=== PATIENT | male | born 1985 | race African-American/Black ===

== ENCOUNTER 2017-10-25 02:14 | Emergency (ER) | payer MEDICARE, MEDICAID ==
[~2017-10-25] VITALS: Ht 177.8 cm; Wt 61.2 kg
[~2017-10-25 02:14] MED LIST: ACETAMINOPHEN325 M1 ORAL; ALBUTEROL2.5 MG/3 M HHN; AMIKACIN S500 MG/2 M IJ; BISACODYL5 MG ORAL; CALCIUM + VITA1 EAC2 PO; CEFTRIAXON1 GM/50 ML IV; CEFTRIAXON2 GM/50 ML IV; CULTURELLE1 EACH ORAL; DETROL2 MG ORAL; DILAUDID 22 MG/1 ML SUBQ; DILAUDID2 MG ORAL; DOCUSATE SODIU100 MG ORAL; DUONEB 0.5-3(2.53 ML HHN; FEOSOL325 MG ORAL; FERROUS SULFAT325 MG ORAL; FLAGYL500 MG ORAL; HEPARIN SO5000 UNIT2 SUBQ; HYDROMORPHO2 MG/1 M5 IVP; KEFLEX500 MG ORAL; LOMOTIL TABLET1 EACH ORAL; MACROBID100 MG ORAL; METHADONE HCL10 MG ORAL; METRONIDAZOLE500 MG ORAL; MIRALAX17 GM ORAL; MULTIVITAMINS1 EA11 ORAL; NEURONTIN600 MG ORAL; NORCO 10/3251 EA ORAL; OXYBUTYNIN CHLOR5 M1 ORAL; PHENERGAN25 M1 ORAL; PROMETHAZINE HC25 MG RC; RANITIDINE HCL150 MG ORAL; SENNA8.6 M2 PO; SENNA8.6 M3 PO; UNOBMED; VANCOMYCIN1 GM/2502 IVPB; VANCOMYCIN250 MG/5 M ORAL; VITAMIN C WITH500 MG PO; ZINC SULFATE220 M1 ORAL
[2017-10-25 03:06] VITALS: BP 0/0
--- NOTE | 2017-10-25 03:06 | Emergency Room Report ---
History of Present Illness General Chief Complaint: Abdominal Pain Source: Patient, Medical Record Present Illness HPI Is a 32-year-old male with a history of present chronic pain. He presents with multiple complaints. He came in complaining abdominal pain. He's been here several times in the past for the same thing. Pain is diffuse in nature. No guarding or rebound. No nausea vomiting. No diarrhea. He also complaining of right leg swelling and pain. He claims but only for a week. He claimed that his wound was only been there for a week. No trauma. Pain is 10 out of 10. He is paraplegic and uses a wheelchair. Allergies: Coded Allergies: MORPHINE (Unverified Allergy, Mild, Rash, 09/06/13) COPIED FROM NURSING Patient History Past Medical History: see triage record, old chart reviewed Past Surgical History: other Pertinent Family History: none Social History: Denies: smoking Immunizations: other Reviewed Nursing Documentation: PMH: Agreed, PSxH: Agreed Nursing Documentation-PMH Hx Cardiac Problems: No Hx Cancer: No Hx Gastrointestinal Problems: Yes - ILEOSTOMY Hx Neurological Problems: Yes - Paraplegic since 2006 due to fall Hx Paralysis: Yes - 2006 fall/injury Hx Spinal Cord Injury: Yes - 2006 Review of Systems Eye: Denies: eye pain, blurred vision ENT: Denies: ear pain, nose congestion, throat swelling Respiratory: Denies: cough, shortness of breath Cardiovascular: Denies: chest pain, palpitations Gastrointestinal: Reports: abdominal pain, Denies: diarrhea, nausea, vomiting Musculoskeletal: Denies: back pain, joint pain Skin: Denies: rash Neurological: Denies: headache, numbness Endocrine: Denies: increased thirst, increased urine Hematologic/Lymphatic: Denies: easy bruising All Other Systems: negative except mentioned in HPI Physical Exam Vital Signs Date Time Temp Pulse Resp B/P (MAP) Pulse Ox O2 Delivery O2 Flow Rate FiO2 10/25/17 02:33 98.6 89 16 111/62 99 Room Air vitals normal Sp02 EP Interpretation: reviewed, normal General Appearance: well appearing, no apparent distress, alert Head: normocephalic, atraumatic Eyes: bilateral eye PERRL, bilateral eye EOMI ENT: hearing grossly normal, normal pharynx Neck: full range of motion, supple, no meningismus Respiratory: chest non-tender, lungs clear, normal breath sounds Cardiovascular #1: regular rate, rhythm, no murmur Gastrointestinal: normal bowel sounds, non tender, no mass, no organomegaly, no bruit, non-distended, other - Normal bowel sounds. Abdomen is soft. He has an ileostomy tube. Musculoskeletal: back normal, other - Right leg: He has old wound with scarring to the right thigh area. No drainage. Right leg show edema greater than left. 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 Neurologic: alert, oriented x3 Psychiatric: mood/affect normal Skin: warm/dry Medical Decision Making Diagnostic Impression: Primary Impression: Abdominal pain of unknown etiology Additional Impressions: Chronic pain Qualified Codes: G89.4 - Chronic pain syndrome Osteomyelitis, chronic, ankle or foot Qualified Codes: M86.679 - Other chronic osteomyelitis, unspecified ankle and foot ER Course Patient with chronic pain. Abdominal pain as chronic in nature and most likely secondary to constipation from narcotic. I see no evidence of obstruction. He looks comfortable. Lower extremity edema is probably chronic in nature. His wound are chronic in nature. The gangrene is dry. He tell me that his doctor is in [place]. He has been to her vomiting for his leg pain before. I suspect it is going to different hospital for pain medication. Because of the edema to lower extremity I order ultrasound to rule out DVT. Back she called the wire straightener. Because patient did not get his narcotic, he said he went to leave. He is competent to leave AGAINST MEDICAL ADVICE. Last Vital Signs Date Time Temp Pulse Resp B/P (MAP) Pulse Ox O2 Delivery O2 Flow Rate FiO2 10/25/17 02:33 98.6 89 16 111/62 99 Room Air Status: unchanged Disposition: AGAINST MEDICAL ADVICE Condition: Stable GABRIEL ECHOLS M.D. Oct 25, 2017 03:06
== END 2017-10-25 03:06 | disposition left against medical advice (07) ==
LOC: EMR 02:55
DX: R10.9 Unspecified abdominal pain (principal); G89.29 Other chronic pain; M86.672 Other chronic osteomyelitis, left ankle and foot; M86.671 Other chronic osteomyelitis, right ankle and foot; I96 Gangrene, not elsewhere classified; G82.20 Paraplegia, unspecified; Z88.5 Allergy status to narcotic agent
CPT/HCPCS: 99282

== ENCOUNTER 2018-03-14 13:29 | Inpatient (IN) | payer MEDICARE, MEDICAID ==
[~2018-03-14] VITALS: Ht 177.8 cm; Wt 73.0 kg
[2018-03-14 13:53] VITALS: BP 104/56
[2018-03-14] MEDS ORDERED: fentaNYL 100 mcg/2 mL IV ONE (14:15)
--- NOTE | 2018-03-14 14:35 | Emergency Room Report ---
History of Present Illness General Chief Complaint: Abdominal Pain Source: Patient, Medical Record Present Illness HPI Patient presents emergency department today complaining of abdominal pain. Patient states that he had a history of falls while he was incarcerated and he is a paraplegic. In addition he also has ileostomy. He states that he has been vomiting for the last couple of days so she was some diffuse abdominal pain. In addition he feels that his left hip might be getting infected that he has a chronic ulcer there. He denies any fever chest pain or shortness of breath. No other complaints are noted. Symptoms noted moderate to severe. Allergies: Coded Allergies: MORPHINE (Unverified Allergy, Mild, Rash, 09/06/13) COPIED FROM NURSING KETOROLAC (Verified Allergy, Unknown, 03/14/18) Patient History Past Medical History: other - ileostomy PSxH Narrative ileostomy Social History: Denies: smoking, alcohol use, drug use Reviewed Nursing Documentation: PMH: Agreed; PSxH: Agreed Nursing Documentation-PMH Past Medical History: No History, Except For Hx Cardiac Problems: No Hx Cancer: No Hx Gastrointestinal Problems: Yes - ILEOSTOMY Hx Neurological Problems: Yes - Paraplegic since 2006 due to fall Hx Paralysis: Yes - 2006 fall/injury Hx Spinal Cord Injury: Yes - 2006 Review of Systems All Other Systems: negative except mentioned in HPI Physical Exam Vital Signs Date Time Temp Pulse Resp B/P (MAP) Pulse Ox O2 Delivery O2 Flow Rate FiO2 03/14/18 13:43 98.0 100 18 87/50 98 Room Air 98.1 Sp02 EP Interpretation: reviewed, normal General Appearance: normal inspection, well appearing, alert, mild distress Head: atraumatic Eyes: bilateral eye normal inspection ENT: normal ENT inspection, hearing grossly normal, normal voice Neck: normal inspection, full range of motion, supple, no bony tend Respiratory: normal inspection, lungs clear, normal breath sounds, no respiratory distress, no retraction, no wheezing Cardiovascular #1: regular rate, rhythm, no edema Gastrointestinal: other - diffusely tender, ileostomy intact, brown liquid stool in pouch Genitourinary: no CVA tenderness Musculoskeletal: other - left buttock deep decubitus ulcer, red, serosanguineous discha Neurologic: normal inspection, alert, responsive, speech normal Psychiatric: depressed affect, anxious Skin: other - left decubitus ulcer hip Medical Decision Making Diagnostic Impression: Primary Impression: UTI (urinary tract infection) Additional Impressions: Abdominal pain Decubital ulcer ER Course Patient presents emergency department today with vomiting. Differential diagnoses include viral syndrome, gastroenteritis, severe infection, bowel obstruction just to name a few.Given the severity of the patient's presentation I felt this is a highly complex patient. This patient required extensive workup. Patient's laboratory workup shows evidence of severe UTI patient was given antibiotics Zosyn and vancomycin. Patient also evidence of significant hip decubitus ulcer CT scan of the abdomen and pelvis shows gas tracking up to this hip which could be consistent with septic joint. Case was discussed with Dr. Kate. Patient will be admitted to Dr. Kate for further treatment. Dr. Kate admitted patient before. Labs Test 03/14/18 15:25 03/14/18 15:45 White Blood Count 7.7 K/UL (4.8-10.8) Red Blood Count 2.76 M/UL (4.70-6.10) Hemoglobin 8.0 G/DL (14.2-18.0) Hematocrit 24.9 % (42.0-52.0) Mean Corpuscular Volume 90 FL (80-99) Mean Corpuscular Hemoglobin 29.0 PG (27.0-31.0) Mean Corpuscular Hemoglobin Concent 32.1 G/DL (32.0-36.0) Red Cell Distribution Width 17.1 % (11.6-14.8) Platelet Count 182 K/UL (150-450) Mean Platelet Volume 6.5 FL (6.5-10.1) Neutrophils (%) (Auto) 72.5 % (45.0-75.0) Lymphocytes (%) (Auto) 13.6 % (20.0-45.0) Monocytes (%) (Auto) 10.1 % (1.0-10.0) Eosinophils (%) (Auto) 3.3 % (0.0-3.0) Basophils (%) (Auto) 0.6 % (0.0-2.0) Prothrombin Time 11.4 SEC (9.30-11.50) Prothromb Time International Ratio 1.1 (0.9-1.1) Activated Partial Thromboplast Time 33 SEC (23-33) Sodium Level 137 MMOL/L (136-145) Potassium Level 3.4 MMOL/L (3.5-5.1) Chloride Level 104 MMOL/L (98-107) Carbon Dioxide Level 22 MMOL/L (21-32) Anion Gap 11 mmol/L (5-15) Blood Urea Nitrogen 5 mg/dL (7-18) Creatinine 0.2 MG/DL (0.55-1.30) Estimat Glomerular Filtration Rate > 60 mL/min (>60) Glucose Level 103 MG/DL (74-106) Calcium Level 8.9 MG/DL (8.5-10.1) Total Bilirubin 0.8 MG/DL (0.2-1.0) Aspartate Amino Transf (AST/SGOT) 13 U/L (15-37) Alanine Aminotransferase (ALT/SGPT) 15 U/L (12-78) Alkaline Phosphatase 81 U/L (46-116) Total Protein 7.6 G/DL (6.4-8.2) Albumin 2.6 G/DL (3.4-5.0) Globulin 5.0 g/dL Albumin/Globulin Ratio 0.5 (1.0-2.7) Lipase 61 U/L (73-393) Urine Color Yellow Urine Appearance Cloudy Urine pH 6 (4.5-8.0) Urine Specific [place] 1.010 (1.005-1.035) Urine Protein 2+ (NEGATIVE) Urine Glucose (UA) Negative (NEGATIVE) Urine Ketones Negative (NEGATIVE) Urine Occult Blood 4+ (NEGATIVE) Urine Nitrite Positive (NEGATIVE) Urine Bilirubin Negative (NEGATIVE) Urine Urobilinogen Normal MG/DL (0.0-1.0) Urine Leukocyte Esterase 3+ (NEGATIVE) Urine RBC 5-10 /HPF (0 - 0) Urine WBC Tntc /HPF (0 - 0) Urine Squamous Epithelial Cells None /LPF (NONE/OCC) Urine Bacteria Moderate /HPF (NONE) Other X-Ray Diagnostic Results Other X-Ray Diagnostic Results : X-Ray ordered: Left hip # of Views/Limited Vs Complete: 2 View Indication: Pain EP Interpretation: Yes Interpretation: no dislocation, no fractures, other - Significant osteoporosis, Impression: No acute disease Electronically Signed by: Electronically signed by Andrew Blunt MD CT/MRI/US Diagnostic Results CT/MRI/US Diagnostic Results : Imaging Test Ordered: CT abdomen and pelvis: Positive septic joint left hip Last Vital Signs Date Time Temp Pulse Resp B/P (MAP) Pulse Ox O2 Delivery O2 Flow Rate FiO2 03/14/18 13:43 98.0 100 18 87/50 98 Room Air 98.1 Status: improved Disposition: ADMITTED INPATIENT Condition: Serious Referrals: NOT CHOSEN IPA/,REFERRING (PCP) Andrew Blunt MD Mar 14, 2018 14:35
[2018-03-14 15:53] LABS: BASOPHILS % (AUTO) 0.6 % (0.0-2.0); EOSINOPHILS % (AUTO) 3.3 % (0.0-3.0); HEMATOCRIT 24.9 % (42.0-52.0); LYMPHOCYTES % (AUTO) 13.6 % (20.0-45.0); MEAN CORPUSCULAR VOLUME 90 FL (80-99); MONOCYTES % (AUTO) 10.1 % (1.0-10.0); NEUTROPHILS % (AUTO) 72.5 % (45.0-75.0); PLATELET COUNT 182 K/UL (150-450); RED BLOOD COUNT 2.76 M/UL (4.70-6.10); RED CELL DISTRIBUTION WIDTH 17.1 % (11.6-14.8); WHITE BLOOD COUNT 7.7 K/UL (4.8-10.8)
[2018-03-14 15:59] LABS: APPEARANCE,URINE CLOUDY; BILIRUBIN, URINE NEGATIVE (NEGATIVE); GLUCOSE, URINE (UA) NEGATIVE (NEGATIVE); KETONES,URINE NEGATIVE (NEGATIVE); LEUKOCYTE ESTERASE ,URINE 3+ (NEGATIVE); NITRITE,URINE POSITIVE (NEGATIVE); PH,URINE 6 (4.5-8.0); PROTEIN,URINE 2+ (NEGATIVE); UROBILINOGEN,URINE NORMAL MG/DL (0.0-1.0)
[2018-03-14 16:00] VITALS: BP 103/61
[2018-03-14 16:00] LABS: COLOR,URINE YELLOW
[2018-03-14 16:03] LABS: INR 1.1 (0.9-1.1)
[2018-03-14 16:07] LABS: ANION GAP 11 mmol/L (5-15); BLOOD UREA NITROGEN 5 mg/dL (7-18); CALCIUM 8.9 MG/DL (8.5-10.1); CARBON DIOXIDE 22 MMOL/L (21-32); CHLORIDE 104 MMOL/L (98-107); CREATININE 0.2 MG/DL (0.55-1.30); POTASSIUM 3.4 MMOL/L (3.5-5.1); SODIUM 137 MMOL/L (136-145)
[2018-03-14 16:12] LABS: ALANINE AMINOTRANSFERASE 15 U/L (12-78); ALBUMIN 2.6 G/DL (3.4-5.0); ALBUMIN/GLOBULIN RATIO 0.5 (1.0-2.7); ALKALINE PHOSPHATASE 81 U/L (46-116); ASPARTATE AMINO TRANSFERASE 13 U/L (15-37); BILIRUBIN,TOTAL 0.8 MG/DL (0.2-1.0)
[2018-03-14] MEDS ORDERED: Vancomycin 1 GM in NS 275 ML IVPB ONE (16:45)
[2018-03-14] MEDS ORDERED: Piperacillin/Tazobactam 3.375 GM in NS 110 ML IVPB ONE (16:45)
--- NOTE | 2018-03-14 16:50 | Diagnostic Imaging Report ---
Indication: Left lower quadrant pain, nausea x3 days Technique: Spiral acquisitions obtained through the abdomen and pelvis. No oral contrast utilized, per emergency room physician request No IV contrast utilized, per referring physician request.. Multiplanar reconstructions were generated. Total dose length product 688.8 mGycm. CTDIvol(s) 14.56 mGy. 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 This excludes an inferior vena cava filter, which is pushed to the right of the endograft. This is a new finding since previous exam There is extensive chronic appearing deformity of the pelvis and both hips. A large mass of new bone is seen extending from the right iliac fossa into the right groin region. There is evidence of chronic destruction of the coccyx, unchanged. There is evidence of decubitus ulceration posterior to the left hip, and gas bubbles are seen extending into the left hip joint. There is increasing tissue or fluid within the left hip joint, and the margins of the acetabulum and femoral head appear less distinct than previously. The femoral head is now subluxed laterally and articulates with the lip of the acetabulum. This likewise is a new finding from previous. Extensive abnormal soft tissue is seen surrounding both hip joints, more so on the left. Extensive abnormal infiltration of the subcutaneous fat is seen in the bilateral groins, bilateral thighs, and in the perineum, unchanged from previous. Lack of enteric contrast limits assessment of the GI tract. There is an ileostomy just to the right of the umbilicus. This is a new finding. The colon remains, however, and dense stool is seen within the colon, particularly distally. There is questionable mild wall thickening of the distal colon. The appendix is normal. A surgical staple line is seen in the region of the cecum. No small bowel distention. No focal fluid collections are evident. No free intraperitoneal air. Distal esophagus, stomach, duodenum are unremarkable. Lack of IV contrast limits assessment of the solid organs. The liver, gallbladder, bile ducts, pancreas, spleen, adrenals are all unremarkable. There is mild right hydronephrosis without evidence of downstream obstructive lesion. The right kidney demonstrates a subcentimeter interpolar region lesion which is too small to characterize, as well as one or more small parenchymal calcifications. The left kidney demonstrates multiple calyceal calculi, also evident previously. No definite hydronephrosis or ureteral calculi. There is mild ectasia of the left ureter. There is a suprapubic catheter again demonstrated. The bladder is nondistended. Somewhat enlarged bilateral, left greater than right, pelvic lymph nodes are noted. These appear increased in size from the previous study. Included lung bases are clear Impression: Limited assessment of the GI tract, due to lack of enteric contrast New finding of right lower quadrant ileostomy. No evidence of small bowel distention. Retained dense stool within the colon, despite the ileostomy. Equivocal mild wall thickening of the distal colon, could indicate stercoral colitis Decubitus changes of the left buttock. Gas is seen extending from a left-sided decubitus ulcer into what remains of the left hip joint. There is increased widening and subluxation of the left hip joint and fluid and tissue within the hip joint as compared to the previous exam. There is indistinctness of the cortical surfaces of the acetabulum and femoral head. 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 Patency is indeterminate in the absence of contrast administration Mild right hydronephrosis, etiology indeterminate, as no definite downstream obstructive lesion is demonstrated. Left renal calyceal calculi. Right renal parenchymal calcification Suprapubic catheter Mild bilateral pelvic lymphadenopathy, left greater than right. Suspect reactive but malignant adenopathy not completely excludable Subcentimeter right renal lesion, too small to characterize, most likely benign simple cysts. No further follow-up necessary Findings essentially phone with Dr. Blunt in the emergency room at the time of interpretation The CT scanner at [facility] is accredited by the [employer] and the scans are performed using protocols designed to limit radiation exposure to as low as reasonably achievable to attain images of sufficient resolution adequate for diagnostic evaluation.
--- NOTE | 2018-03-14 17:00 | Diagnostic Imaging Report ---
Indication: Left hip pain Technique: 2 views of the left hip Comparison: 08/31/2014. Reference also made to subsequent CT scan Findings: Lucency projected over the left hip joint is not definitely corroborated on CT scan, may reflect overlying bowel gas within pannus, as this is much larger than the decubitus ulcer demonstrated on CT. There is extensive destruction of the femoral head and left acetabulum as well as ducts subluxation of the left femoral head which is new since previous study. There is suggestion of gas in the lateral hip soft tissues on one view, probably artifactual as it is not confirmed on the other view. There is extensive deformity of the pelvis, also previously reported on CT scans. Impression: Marked subluxation and distraction of the left hip joint, progressive since 2014. Please refer to subsequent CT scan for more detailed analysis
[2018-03-14 18:00] VITALS: BP 102/57
[2018-03-14] MEDS ORDERED: HYDROMORPHONE HC4 M1 PO (18:07)
[2018-03-14] MEDS ORDERED: Nitroglycerin Subl 0.4mg tab SL PRN (19:47)
[2018-03-14] MEDS ORDERED: LORazepam Inj 2mg/ml 1ml IV PRN (19:47)
[2018-03-14] MEDS ORDERED: Promethazine HCl 12.5 MG in NS 55 ML IV PRN (19:49)
[2018-03-14 20:00] VITALS: BP 100/60
[2018-03-14] MEDS ORDERED: Miralax 17gm pkt ORAL PRN (21:00)
[2018-03-14] MEDS: Heparin 5000 units/ml inj SUBQ SCH (21:00)
[2018-03-14] MEDS: D5 1/2NS 1,000 ML IV SCH (21:40)
[2018-03-14] MEDS: DiphenhydrAMINE 50mg/ml Inj IVP PRN (21:55)
[2018-03-14] MEDS: Morphine Sulfate 4mg/ml Inj IVP PRN (21:55)
[2018-03-15] VITALS: BP 100/52
[2018-03-15 04:00] VITALS: BP 100/49
[2018-03-15] MEDS: DiphenhydrAMINE 50mg/ml Inj IVP PRN ×4 (04:01→14:02)
[2018-03-15] MEDS: Morphine Sulfate 4mg/ml Inj IVP PRN ×3 (04:02→14:02)
[2018-03-15 08:00] VITALS: BP 96/60
[2018-03-15] MEDS: Heparin 5000 units/ml inj SUBQ SCH (09:00)
[2018-03-15] MEDS: D5 1/2NS 1,000 ML IV SCH (09:50)
[2018-03-15 10:50] LABS: HEMATOCRIT 23.9 % (42.0-52.0); HEMOGLOBIN 7.6 G/DL (14.2-18.0); MEAN CORPUSCULAR VOLUME 92 FL (80-99); PLATELET COUNT 195 K/UL (150-450); RED BLOOD COUNT 2.61 M/UL (4.70-6.10); RED CELL DISTRIBUTION WIDTH 16.9 % (11.6-14.8); WHITE BLOOD COUNT 4.9 K/UL (4.8-10.8)
[2018-03-15 11:05] LABS: ALANINE AMINOTRANSFERASE 14 U/L (12-78); ALBUMIN 2.4 G/DL (3.4-5.0); ALBUMIN/GLOBULIN RATIO 0.5 (1.0-2.7); ALKALINE PHOSPHATASE 73 U/L (46-116); AMYLASE 19 U/L (25-115); ANION GAP 8 mmol/L (5-15); ASPARTATE AMINO TRANSFERASE 11 U/L (15-37); BILIRUBIN,TOTAL 0.7 MG/DL (0.2-1.0); BLOOD UREA NITROGEN 3 mg/dL (7-18); CALCIUM 8.4 MG/DL (8.5-10.1); CARBON DIOXIDE 26 MMOL/L (21-32); CHLORIDE 108 MMOL/L (98-107); CREATININE 0.2 MG/DL (0.55-1.30); POTASSIUM 3.4 MMOL/L (3.5-5.1); SODIUM 141 MMOL/L (136-145)
[2018-03-15 11:23] LABS: FERRITIN 257 NG/ML (8-388); LACTATE DEHYDROGENASE 164 U/L (81-234)
[2018-03-15 11:32] LABS: % IRON SATURATION 8 % (15-50); IRON 15 ug/dL (50-175); TOTAL IRON BINDING CAPACITY 185 ug/dL (250-450)
--- NOTE | 2018-03-15 11:40 | History and Physical ---
History of Present Illness General Date patient seen: Mar 15, 2018 Reason for Hospitalization: Abdominal Pain Present Illness HPI 32 year old male with hx of paraplegia, ileostomy, subprapubic catheter, presented to ER complaining of abdominal pain. He states that he has been vomiting for the last couple of days so she was some diffuse abdominal pain. In addition he feels that his left hip might be getting infected that he has a chronic ulcer there. He denies any fever chest pain or shortness of breath. No other complaints are noted. Symptoms noted moderate to severe anemia and admitted to med/surg for further management. Allergies: Coded Allergies: MORPHINE (Unverified Allergy, Mild, Rash, 09/06/13) COPIED FROM NURSING KETOROLAC (Verified Allergy, Unknown, 03/14/18) Medication History Scheduled Multivitamin (Multivitamins), 1 CAP ORAL DAILY, (Reported) Scheduled PRN Hydromorphone Hcl (Hydromorphone Hcl), 2 MG PO Q3HR PRN for Severe Pain (Pain Scale 7-10), (Reported) Patient History Healthcare decision maker N Resuscitation status Full Code Advanced Directive on File Past Medical/Surgical History Past Medical/Surgical History: (1) Decubital ulcer (2) Osteomyelitis, chronic, ankle or foot (3) Suprapubic catheter (4) Neurogenic bladder (5) Spinal cord injury (6) Decubitus ulcer of left heel, stage 3 Review of Systems All Other Systems: negative except mentioned in HPI Physical Exam General Appearance: WD/WN Lines, tubes and drains: peripheral HEENT: normocephalic, atraumatic Neck: non-tender, normal alignment Respiratory/Chest: chest wall non-tender, lungs clear Breasts: no masses Cardiovascular/Chest: normal peripheral pulses Abdomen: normal bowel sounds, non tender Genitourinary/Rectal: normal genital exam Extremities: normal range of motion Skin Exam: normal pigmentation Last 24 Hour Vital Signs Date Time Temp Pulse Resp B/P (MAP) Pulse Ox O2 Delivery O2 Flow Rate FiO2 03/15/18 09:49 97.9 03/15/18 09:19 97.9 03/15/18 08:00 97.9 81 20 96/60 100 Room Air 97.9 03/15/18 04:00 97.0 99 20 100/49 97 Room Air 97.0 03/15/18 00:00 97.3 95 20 100/52 100 Room Air 97.3 03/14/18 20:00 98.4 96 20 100/60 96 Room Air 98.4 03/14/18 18:00 98.5 89 18 107/60 100 Room Air 98.0 03/14/18 18:00 98.8 83 18 102/57 99 Room Air 98.8 03/14/18 16:00 98.0 03/14/18 16:00 98.0 82 17 103/61 99 Room Air 98.0 03/14/18 15:30 98.0 03/14/18 13:53 98.1 18 104/56 98 Room Air 98.1 03/14/18 13:43 98.0 100 18 87/50 98 Room Air 98.1 Intake and Output 03/14/18 03/15/18 19:00 07:00 Intake Total 1110 ml 675 ml Output Total 700 ml 650 ml Balance 410 ml 25 ml Intake IV Total 1110 ml 675 ml Output Urine Total 700 ml 450 ml Stool Total 200 ml Laboratory Tests Test 03/14/18 15:25 03/14/18 15:45 03/15/18 10:00 03/15/18 10:30 White Blood Count 7.7 K/UL (4.8-10.8) 4.9 K/UL (4.8-10.8) Red Blood Count 2.76 M/UL (4.70-6.10) L 2.61 M/UL (4.70-6.10) L Hemoglobin 8.0 G/DL (14.2-18.0) L 7.6 G/DL (14.2-18.0) L Hematocrit 24.9 % (42.0-52.0) L 23.9 % (42.0-52.0) L Mean Corpuscular Volume 90 FL (80-99) 92 FL (80-99) Mean Corpuscular Hemoglobin 29.0 PG (27.0-31.0) 29.3 PG (27.0-31.0) Mean Corpuscular Hemoglobin Concent 32.1 G/DL (32.0-36.0) 32.0 G/DL (32.0-36.0) Red Cell Distribution Width 17.1 % (11.6-14.8) H 16.9 % (11.6-14.8) H Platelet Count 182 K/UL (150-450) 195 K/UL (150-450) Mean Platelet Volume 6.5 FL (6.5-10.1) 7.2 FL (6.5-10.1) Neutrophils (%) (Auto) 72.5 % (45.0-75.0) % (45.0-75.0) Lymphocytes (%) (Auto) 13.6 % (20.0-45.0) L % (20.0-45.0) Monocytes (%) (Auto) 10.1 % (1.0-10.0) H % (1.0-10.0) Eosinophils (%) (Auto) 3.3 % (0.0-3.0) H % (0.0-3.0) Basophils (%) (Auto) 0.6 % (0.0-2.0) % (0.0-2.0) Prothrombin Time 11.4 SEC (9.30-11.50) Prothromb Time International Ratio 1.1 (0.9-1.1) Activated Partial Thromboplast Time 33 SEC (23-33) 31 SEC (23-33) Sodium Level 137 MMOL/L (136-145) 141 MMOL/L (136-145) Potassium Level 3.4 MMOL/L (3.5-5.1) L 3.4 MMOL/L (3.5-5.1) L Chloride Level 104 MMOL/L (98-107) 108 MMOL/L (98-107) H Carbon Dioxide Level 22 MMOL/L (21-32) 26 MMOL/L (21-32) Anion Gap 11 mmol/L (5-15) 8 mmol/L (5-15) Blood Urea Nitrogen 5 mg/dL (7-18) L 3 mg/dL (7-18) L Creatinine 0.2 MG/DL (0.55-1.30) L 0.2 MG/DL (0.55-1.30) L Estimat Glomerular Filtration Rate > 60 mL/min (>60) > 60 mL/min (>60) Glucose Level 103 MG/DL (74-106) 98 MG/DL (74-106) Calcium Level 8.9 MG/DL (8.5-10.1) 8.4 MG/DL (8.5-10.1) L Total Bilirubin 0.8 MG/DL (0.2-1.0) 0.7 MG/DL (0.2-1.0) Aspartate Amino Transf (AST/SGOT) 13 U/L (15-37) L 11 U/L (15-37) L Alanine Aminotransferase (ALT/SGPT) 15 U/L (12-78) 14 U/L (12-78) Alkaline Phosphatase 81 U/L (46-116) 73 U/L (46-116) Total Protein 7.6 G/DL (6.4-8.2) 7.3 G/DL (6.4-8.2) Albumin 2.6 G/DL (3.4-5.0) L 2.4 G/DL (3.4-5.0) L Globulin 5.0 g/dL 4.9 g/dL Albumin/Globulin Ratio 0.5 (1.0-2.7) L 0.5 (1.0-2.7) L Lipase 61 U/L (73-393) L Urine Color Yellow Urine Appearance Cloudy Urine pH 6 (4.5-8.0) Urine Specific [place] 1.010 (1.005-1.035) Urine Protein 2+ (NEGATIVE) H Urine Glucose (UA) Negative (NEGATIVE) Urine Ketones Negative (NEGATIVE) Urine Occult Blood 4+ (NEGATIVE) H Urine Nitrite Positive (NEGATIVE) H Urine Bilirubin Negative (NEGATIVE) Urine Urobilinogen Normal MG/DL (0.0-1.0) Urine Leukocyte Esterase 3+ (NEGATIVE) H Urine RBC 5-10 /HPF (0 - 0) H Urine WBC Tntc /HPF (0 - 0) H Urine Squamous Epithelial Cells None /LPF (NONE/OCC) Urine Bacteria Moderate /HPF (NONE) H Differential Total Cells Counted 100 Neutrophils % (Manual) 67 % (45-75) Lymphocytes % (Manual) 20 % (20-45) Monocytes % (Manual) 10 % (1-10) Eosinophils % (Manual) 3 % (0-3) Basophils % (Manual) 0 % (0-2) Band Neutrophils 0 % (0-8) Platelet Estimate Adequate Platelet Morphology Normal Hypochromasia 3+ Anisocytosis 1+ Spherocytes 1+ Reticulocyte Count 3.8 % (0.0-2.0) H Iron Level 15 ug/dL (50-175) L Total Iron Binding Capacity 185 ug/dL (250-450) L Percent Iron Saturation 8 % (15-50) L Unsaturated Iron Binding 170 ug/dL (112-346) Ferritin 257 NG/ML (8-388) Lactate Dehydrogenase 164 U/L (81-234) Amylase Level 19 U/L (25-115) L Vitamin B12 Level 375 PG/ML (193-986) Methylmalonic Acid Pending Thyroid Stimulating Hormone (TSH) 0.585 uiU/mL (0.358-3.740) Stool Occult Blood Pending Microbiology Date/Time Source Procedure Growth Status 03/14/18 15:45 Urine,Clean Catch Urine Culture - Preliminary Gram Negative Bacillus 1 Resulted Height (Feet): 5 Height (Inches): 10.00 Weight (Pounds): 161 Medications Current Medications Medications (Trade) Dose Ordered Sig/Tamia Route PRN Reason Start Time Stop Time Status Last Admin Dose Admin Acetaminophen (Tylenol) 650 mg Q4H PRN ORAL fever 03/14/18 19:46 04/13/18 19:45 Dextrose (Dextrose 50%) 25 ml STAT PRN IV Hypoglycemia 03/14/18 19:50 04/13/18 19:49 Dextrose (Dextrose 50%) 50 ml STAT PRN IV Hypoglycemia 03/14/18 19:51 04/13/18 19:50 Dextrose/Sodium Chloride 1,000 ml @ 75 mls/hr [id number] IV 03/14/18 20:30 04/13/18 20:29 03/14/18 21:40 Diphenhydramine HCl (Benadryl) 25 mg Q6H PRN ORAL Itching/Pruritis 03/14/18 19:47 04/13/18 19:46 Diphenhydramine HCl (Benadryl) 50 mg Q4H PRN IVP Itching 03/14/18 21:41 04/13/18 21:40 03/15/18 09:27 Heparin Sodium (Porcine) (Heparin 5000 units/ml) 5,000 units EVERY 12 HOURS SUBQ 03/14/18 21:00 04/13/18 20:59 Lorazepam (Ativan 2mg/ml 1ml) 1 mg Q4H PRN IV agitation 03/14/18 19:47 03/21/18 19:46 Morphine Sulfate (Morphine Sulfate) 4 mg Q4H PRN IVP Severe Pain (Pain Scale 7-10) 03/14/18 21:42 03/21/18 21:41 03/15/18 09:19 Nitroglycerin (Ntg) 0.4 mg Q5M X 3 DOSES PRN SL Prn Chest Pain 03/14/18 19:47 04/13/18 19:46 Ondansetron HCl (Zofran) 4 mg Q6H PRN IVP Nausea & Vomiting 03/14/18 19:47 04/13/18 19:46 Polyethylene Glycol (Miralax) 17 gm HSPRN PRN ORAL Constipation 03/14/18 21:00 04/13/18 20:59 Promethazine HCl 12.5 mg/Sodium Chloride 55.5 ml @ 110 mls/hr Q6H PRN IV Refractory N/V 03/14/18 19:49 04/13/18 19:48 Temazepam (Restoril) 15 mg HSPRN PRN ORAL Insomnia 03/14/18 21:00 03/21/18 20:59 03/14/18 21:55 Assessment/Plan Problem List: (1) Abdominal pain ICD Codes: R10.9 - Abdominal pain SNOMED: 44640092 (2) Sepsis ICD Codes: A41.9 - Sepsis, unspecified organism SNOMED: 51135177 (3) Decubitus ulcer of left heel, stage 3 ICD Codes: L89.623 - Decubitus ulcer of left heel, stage 3 SNOMED: 735491361 (4) Suprapubic catheter ICD Codes: Z93.59 - Suprapubic catheter SNOMED: 522305849 (5) Spinal cord injury ICD Codes: TWR9572 - Reserved for [id number] codable problem concepts SNOMED: 74860924 Assessment/Plan iv flujids haynes culture iv abx check electrolytes anemia w/u Reanna Kate MD Mar 15, 2018 11:40
--- NOTE | 2018-03-15 11:46 | Consultation ---
History of Present Illness General Chief Complaint: Abdominal Pain Present Illness HPI 32 year old male with hx of pain medication dependence, depression, paraplegia, ileostomy, suprapubic catheter, presented to ER complaining of abdominal pain. the pt has med seeking behavior. the pt has withdrawn and has depressed affect. Denied si/hi Allergies: Coded Allergies: MORPHINE (Unverified Allergy, Mild, Rash, 09/06/13) COPIED FROM NURSING KETOROLAC (Verified Allergy, Unknown, 03/14/18) Medication History Scheduled Multivitamin (Multivitamins), 1 CAP ORAL DAILY, (Reported) Scheduled PRN Hydromorphone Hcl (Hydromorphone Hcl), 2 MG PO Q3HR PRN for Severe Pain (Pain Scale 7-10), (Reported) Patient History Limited by: medical condition History Provided By: Patient, Medical Record, PMD Healthcare decision maker N Resuscitation status Full Code Advanced Directive on File Past Medical/Surgical History Past Medical/Surgical History: (1) acinetobacter left heel wound infection (2) Bronchitis (3) Acute hypokalemia (4) Pain in right hip (5) chronic osteomyelitis left heel (6) Sacral decubitus ulcer, stage III (7) mrsa left heel wound infection (8) Renal calculus or stone (9) UTI (urinary tract infection) (10) Hyponatremia (11) Diarrhea (12) UTI (urinary tract infection) (13) UTI (urinary tract infection) (14) C. 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 (20) Anemia (21) Gastroenteritis (22) Colon distention (23) Diarrhea (24) Chronic pain due to injury (25) Constipation (26) Chronic pain (27) Vomiting (28) Spinal cord injury (29) Neurogenic bladder (30) Suprapubic catheter (31) Decubital ulcer (32) Osteomyelitis, chronic, ankle or foot (33) Decubitus ulcer of left heel, stage 3 (34) Sepsis (35) Abdominal pain Review of Systems Psychiatric: Reports: prior hx, anxiety, depressed feelings, emotional problems Physical Exam General Appearance: no apparent distress, alert Neurologic: oriented x 3, responsive, depressed affect Last 24 Hour Vital Signs Date Time Temp Pulse Resp B/P (MAP) Pulse Ox O2 Delivery O2 Flow Rate FiO2 03/15/18 09:49 97.9 03/15/18 09:19 97.9 03/15/18 08:00 97.9 81 20 96/60 100 Room Air 97.9 03/15/18 04:00 97.0 99 20 100/49 97 Room Air 97.0 03/15/18 00:00 97.3 95 20 100/52 100 Room Air 97.3 03/14/18 20:00 98.4 96 20 100/60 96 Room Air 98.4 03/14/18 18:00 98.5 89 18 107/60 100 Room Air 98.0 03/14/18 18:00 98.8 83 18 102/57 99 Room Air 98.8 03/14/18 16:00 98.0 03/14/18 16:00 98.0 82 17 103/61 99 Room Air 98.0 03/14/18 15:30 98.0 03/14/18 13:53 98.1 18 104/56 98 Room Air 98.1 03/14/18 13:43 98.0 100 18 87/50 98 Room Air 98.1 Intake and Output 03/14/18 03/15/18 19:00 07:00 Intake Total 1110 ml 675 ml Output Total 700 ml 650 ml Balance 410 ml 25 ml Intake IV Total 1110 ml 675 ml Output Urine Total 700 ml 450 ml Stool Total 200 ml Laboratory Tests Test 03/14/18 15:25 03/14/18 15:45 03/15/18 10:00 03/15/18 10:30 White Blood Count 7.7 K/UL (4.8-10.8) 4.9 K/UL (4.8-10.8) Red Blood Count 2.76 M/UL (4.70-6.10) L 2.61 M/UL (4.70-6.10) L Hemoglobin 8.0 G/DL (14.2-18.0) L 7.6 G/DL (14.2-18.0) L Hematocrit 24.9 % (42.0-52.0) L 23.9 % (42.0-52.0) L Mean Corpuscular Volume 90 FL (80-99) 92 FL (80-99) Mean Corpuscular Hemoglobin 29.0 PG (27.0-31.0) 29.3 PG (27.0-31.0) Mean Corpuscular Hemoglobin Concent 32.1 G/DL (32.0-36.0) 32.0 G/DL (32.0-36.0) Red Cell Distribution Width 17.1 % (11.6-14.8) H 16.9 % (11.6-14.8) H Platelet Count 182 K/UL (150-450) 195 K/UL (150-450) Mean Platelet Volume 6.5 FL (6.5-10.1) 7.2 FL (6.5-10.1) Neutrophils (%) (Auto) 72.5 % (45.0-75.0) % (45.0-75.0) Lymphocytes (%) (Auto) 13.6 % (20.0-45.0) L % (20.0-45.0) Monocytes (%) (Auto) 10.1 % (1.0-10.0) H % (1.0-10.0) Eosinophils (%) (Auto) 3.3 % (0.0-3.0) H % (0.0-3.0) Basophils (%) (Auto) 0.6 % (0.0-2.0) % (0.0-2.0) Prothrombin Time 11.4 SEC (9.30-11.50) Prothromb Time International Ratio 1.1 (0.9-1.1) Activated Partial Thromboplast Time 33 SEC (23-33) 31 SEC (23-33) Sodium Level 137 MMOL/L (136-145) 141 MMOL/L (136-145) Potassium Level 3.4 MMOL/L (3.5-5.1) L 3.4 MMOL/L (3.5-5.1) L Chloride Level 104 MMOL/L (98-107) 108 MMOL/L (98-107) H Carbon Dioxide Level 22 MMOL/L (21-32) 26 MMOL/L (21-32) Anion Gap 11 mmol/L (5-15) 8 mmol/L (5-15) Blood Urea Nitrogen 5 mg/dL (7-18) L 3 mg/dL (7-18) L Creatinine 0.2 MG/DL (0.55-1.30) L 0.2 MG/DL (0.55-1.30) L Estimat Glomerular Filtration Rate > 60 mL/min (>60) > 60 mL/min (>60) Glucose Level 103 MG/DL (74-106) 98 MG/DL (74-106) Calcium Level 8.9 MG/DL (8.5-10.1) 8.4 MG/DL (8.5-10.1) L Total Bilirubin 0.8 MG/DL (0.2-1.0) 0.7 MG/DL (0.2-1.0) Aspartate Amino Transf (AST/SGOT) 13 U/L (15-37) L 11 U/L (15-37) L Alanine Aminotransferase (ALT/SGPT) 15 U/L (12-78) 14 U/L (12-78) Alkaline Phosphatase 81 U/L (46-116) 73 U/L (46-116) Total Protein 7.6 G/DL (6.4-8.2) 7.3 G/DL (6.4-8.2) Albumin 2.6 G/DL (3.4-5.0) L 2.4 G/DL (3.4-5.0) L Globulin 5.0 g/dL 4.9 g/dL Albumin/Globulin Ratio 0.5 (1.0-2.7) L 0.5 (1.0-2.7) L Lipase 61 U/L (73-393) L Urine Color Yellow Urine Appearance Cloudy Urine pH 6 (4.5-8.0) Urine Specific [place] 1.010 (1.005-1.035) Urine Protein 2+ (NEGATIVE) H Urine Glucose (UA) Negative (NEGATIVE) Urine Ketones Negative (NEGATIVE) Urine Occult Blood 4+ (NEGATIVE) H Urine Nitrite Positive (NEGATIVE) H Urine Bilirubin Negative (NEGATIVE) Urine Urobilinogen Normal MG/DL (0.0-1.0) Urine Leukocyte Esterase 3+ (NEGATIVE) H Urine RBC 5-10 /HPF (0 - 0) H Urine WBC Tntc /HPF (0 - 0) H Urine Squamous Epithelial Cells None /LPF (NONE/OCC) Urine Bacteria Moderate /HPF (NONE) H Differential Total Cells Counted 100 Neutrophils % (Manual) 67 % (45-75) Lymphocytes % (Manual) 20 % (20-45) Monocytes % (Manual) 10 % (1-10) Eosinophils % (Manual) 3 % (0-3) Basophils % (Manual) 0 % (0-2) Band Neutrophils 0 % (0-8) Platelet Estimate Adequate Platelet Morphology Normal Hypochromasia 3+ Anisocytosis 1+ Spherocytes 1+ Reticulocyte Count 3.8 % (0.0-2.0) H Iron Level 15 ug/dL (50-175) L Total Iron Binding Capacity 185 ug/dL (250-450) L Percent Iron Saturation 8 % (15-50) L Unsaturated Iron Binding 170 ug/dL (112-346) Ferritin 257 NG/ML (8-388) Lactate Dehydrogenase 164 U/L (81-234) Amylase Level 19 U/L (25-115) L Vitamin B12 Level 375 PG/ML (193-986) Methylmalonic Acid Pending Thyroid Stimulating Hormone (TSH) 0.585 uiU/mL (0.358-3.740) Stool Occult Blood Pending Microbiology Date/Time Source Procedure Growth Status 03/14/18 15:45 Urine,Clean Catch Urine Culture - Preliminary Gram Negative Bacillus 1 Resulted Height (Feet): 5 Height (Inches): 10.00 Weight (Pounds): 161 Medications Current Medications Medications (Trade) Dose Ordered Sig/Tamia Route PRN Reason Start Time Stop Time Status Last Admin Dose Admin Acetaminophen (Tylenol) 650 mg Q4H PRN ORAL fever 03/14/18 19:46 04/13/18 19:45 Dextrose (Dextrose 50%) 25 ml STAT PRN IV Hypoglycemia 03/14/18 19:50 04/13/18 19:49 Dextrose (Dextrose 50%) 50 ml STAT PRN IV Hypoglycemia 03/14/18 19:51 04/13/18 19:50 Dextrose/Sodium Chloride 1,000 ml @ 75 mls/hr [id number] IV 03/14/18 20:30 04/13/18 20:29 03/14/18 21:40 Diphenhydramine HCl (Benadryl) 25 mg Q6H PRN ORAL Itching/Pruritis 03/14/18 19:47 04/13/18 19:46 Diphenhydramine HCl (Benadryl) 50 mg Q4H PRN IVP Itching 03/14/18 21:41 04/13/18 21:40 03/15/18 09:27 Heparin Sodium (Porcine) (Heparin 5000 units/ml) 5,000 units EVERY 12 HOURS SUBQ 03/14/18 21:00 04/13/18 20:59 Lorazepam (Ativan 2mg/ml 1ml) 1 mg Q4H PRN IV agitation 03/14/18 19:47 03/21/18 19:46 Morphine Sulfate (Morphine Sulfate) 4 mg Q4H PRN IVP Severe Pain (Pain Scale 7-10) 03/14/18 21:42 03/21/18 21:41 03/15/18 09:19 Nitroglycerin (Ntg) 0.4 mg Q5M X 3 DOSES PRN SL Prn Chest Pain 03/14/18 19:47 04/13/18 19:46 Ondansetron HCl (Zofran) 4 mg Q6H PRN IVP Nausea & Vomiting 03/14/18 19:47 04/13/18 19:46 Polyethylene Glycol (Miralax) 17 gm HSPRN PRN ORAL Constipation 03/14/18 21:00 04/13/18 20:59 Promethazine HCl 12.5 mg/Sodium Chloride 55.5 ml @ 110 mls/hr Q6H PRN IV Refractory N/V 03/14/18 19:49 04/13/18 19:48 Temazepam (Restoril) 15 mg HSPRN PRN ORAL Insomnia 03/14/18 21:00 03/21/18 20:59 03/14/18 21:55 Assessment/Plan Assessment/Plan depressive d/o pain medication dependence -remeron 7.5mg qhs/prn Monty Patel M.D. Mar 15, 2018 11:46
--- NOTE | 2018-03-15 11:51 | GI Initial Consult Note ---
History of Present Illness General Date patient seen: Mar 15, 2018 Time patient seen: 11:45 Reason for Hospitalization: Abdominal Pain Referring physician: KYMBERLY ELMORE Reason for Consultation: ABDOMINAL PAIN Present Illness HPI Patient presents emergency department today complaining of abdominal pain. Patient states that he had a history of falls while he was incarcerated and he is a paraplegic. In addition he also has ileostomy. He states that he has been vomiting for the last couple of days so she was some diffuse abdominal pain. In addition he feels that his left hip might be getting infected that he has a chronic ulcer there. He denies any fever chest pain or shortness of breath. No other complaints are noted. Symptoms noted moderate to severe. GI consulted for abdominal pain. Pt last seen in 2015, known hx of OIC. Awake A&Ox4 NAD with no active s/sx of N/V/D. Patient now has ileostomy that had been recently placed. No report vomiting at this time. CT AP reviewed showed no evidience of small bowel distention, some retained dense stool in the colon and possible stercoral colitis. Labs show iron deficiency anemia. Unknown history of endoscopy / colonoscopy. Home Meds Reported Medications Hydromorphone Hcl (HYDROMORPHONE HCL) 4 Mg Tablet, 2 MG PO Q3HR PRN for Severe Pain (Pain Scale 7-10), TAB 03/14/18 Multivitamin (MULTIVITAMINS) 1 Each Capsule, 1 CAP ORAL DAILY, CAP 09/04/13 Med list reviewed/reconciled: Yes Allergies: Coded Allergies: MORPHINE (Unverified Allergy, Mild, Rash, 09/06/13) COPIED FROM NURSING KETOROLAC (Verified Allergy, Unknown, 03/14/18) Patient History History Provided By: Patient, Medical Record PMH Narrative Past Medical History: other - ileostomy PSxH Narrative ileostomy Social History: Denies: smoking, alcohol use, drug use Reviewed Nursing Documentation: PMH: Agreed; PSxH: Agreed Nursing Documentation-PM Past Medical History: No History, Except For Hx Cardiac Problems: No Hx Cancer: No Hx Gastrointestinal Problems: Yes - ILEOSTOMY Hx Neurological Problems: Yes - Paraplegic since 2006 due to fall Hx Paralysis: Yes - 2006 fall/injury Hx Spinal Cord Injury: Yes - 2006 Review of Systems All Other Systems: negative except mentioned in HPI Physical Exam Vital Signs Date Time Temp Pulse Resp B/P (MAP) Pulse Ox O2 Delivery O2 Flow Rate FiO2 03/14/18 13:43 98.0 100 18 87/50 98 Room Air 98.1 Sp02 EP Interpretation: reviewed, normal Labs Laboratory Tests Test 03/14/18 15:25 03/14/18 15:45 03/15/18 10:00 03/15/18 10:30 White Blood Count 7.7 K/UL (4.8-10.8) 4.9 K/UL (4.8-10.8) Red Blood Count 2.76 M/UL (4.70-6.10) L 2.61 M/UL (4.70-6.10) L Hemoglobin 8.0 G/DL (14.2-18.0) L 7.6 G/DL (14.2-18.0) L Hematocrit 24.9 % (42.0-52.0) L 23.9 % (42.0-52.0) L Mean Corpuscular Volume 90 FL (80-99) 92 FL (80-99) Mean Corpuscular Hemoglobin 29.0 PG (27.0-31.0) 29.3 PG (27.0-31.0) Mean Corpuscular Hemoglobin Concent 32.1 G/DL (32.0-36.0) 32.0 G/DL (32.0-36.0) Red Cell Distribution Width 17.1 % (11.6-14.8) H 16.9 % (11.6-14.8) H Platelet Count 182 K/UL (150-450) 195 K/UL (150-450) Mean Platelet Volume 6.5 FL (6.5-10.1) 7.2 FL (6.5-10.1) Neutrophils (%) (Auto) 72.5 % (45.0-75.0) % (45.0-75.0) Lymphocytes (%) (Auto) 13.6 % (20.0-45.0) L % (20.0-45.0) Monocytes (%) (Auto) 10.1 % (1.0-10.0) H % (1.0-10.0) Eosinophils (%) (Auto) 3.3 % (0.0-3.0) H % (0.0-3.0) Basophils (%) (Auto) 0.6 % (0.0-2.0) % (0.0-2.0) Prothrombin Time 11.4 SEC (9.30-11.50) Prothromb Time International Ratio 1.1 (0.9-1.1) Activated Partial Thromboplast Time 33 SEC (23-33) 31 SEC (23-33) Sodium Level 137 MMOL/L (136-145) 141 MMOL/L (136-145) Potassium Level 3.4 MMOL/L (3.5-5.1) L 3.4 MMOL/L (3.5-5.1) L Chloride Level 104 MMOL/L (98-107) 108 MMOL/L (98-107) H Carbon Dioxide Level 22 MMOL/L (21-32) 26 MMOL/L (21-32) Anion Gap 11 mmol/L (5-15) 8 mmol/L (5-15) Blood Urea Nitrogen 5 mg/dL (7-18) L 3 mg/dL (7-18) L Creatinine 0.2 MG/DL (0.55-1.30) L 0.2 MG/DL (0.55-1.30) L Estimat Glomerular Filtration Rate > 60 mL/min (>60) > 60 mL/min (>60) Glucose Level 103 MG/DL (74-106) 98 MG/DL (74-106) Calcium Level 8.9 MG/DL (8.5-10.1) 8.4 MG/DL (8.5-10.1) L Total Bilirubin 0.8 MG/DL (0.2-1.0) 0.7 MG/DL (0.2-1.0) Aspartate Amino Transf (AST/SGOT) 13 U/L (15-37) L 11 U/L (15-37) L Alanine Aminotransferase (ALT/SGPT) 15 U/L (12-78) 14 U/L (12-78) Alkaline Phosphatase 81 U/L (46-116) 73 U/L (46-116) Total Protein 7.6 G/DL (6.4-8.2) 7.3 G/DL (6.4-8.2) Albumin 2.6 G/DL (3.4-5.0) L 2.4 G/DL (3.4-5.0) L Globulin 5.0 g/dL 4.9 g/dL Albumin/Globulin Ratio 0.5 (1.0-2.7) L 0.5 (1.0-2.7) L Lipase 61 U/L (73-393) L Urine Color Yellow Urine Appearance Cloudy Urine pH 6 (4.5-8.0) Urine Specific [place] 1.010 (1.005-1.035) Urine Protein 2+ (NEGATIVE) H Urine Glucose (UA) Negative (NEGATIVE) Urine Ketones Negative (NEGATIVE) Urine Occult Blood 4+ (NEGATIVE) H Urine Nitrite Positive (NEGATIVE) H Urine Bilirubin Negative (NEGATIVE) Urine Urobilinogen Normal MG/DL (0.0-1.0) Urine Leukocyte Esterase 3+ (NEGATIVE) H Urine RBC 5-10 /HPF (0 - 0) H Urine WBC Tntc /HPF (0 - 0) H Urine Squamous Epithelial Cells None /LPF (NONE/OCC) Urine Bacteria Moderate /HPF (NONE) H Differential Total Cells Counted 100 Neutrophils % (Manual) 67 % (45-75) Lymphocytes % (Manual) 20 % (20-45) Monocytes % (Manual) 10 % (1-10) Eosinophils % (Manual) 3 % (0-3) Basophils % (Manual) 0 % (0-2) Band Neutrophils 0 % (0-8) Platelet Estimate Adequate Platelet Morphology Normal Hypochromasia 3+ Anisocytosis 1+ Spherocytes 1+ Reticulocyte Count 3.8 % (0.0-2.0) H Iron Level 15 ug/dL (50-175) L Total Iron Binding Capacity 185 ug/dL (250-450) L Percent Iron Saturation 8 % (15-50) L Unsaturated Iron Binding 170 ug/dL (112-346) Ferritin 257 NG/ML (8-388) Lactate Dehydrogenase 164 U/L (81-234) Amylase Level 19 U/L (25-115) L Vitamin B12 Level 375 PG/ML (193-986) Methylmalonic Acid Pending Thyroid Stimulating Hormone (TSH) 0.585 uiU/mL (0.358-3.740) Stool Occult Blood Pending General Appearance: well appearing, no apparent distress, alert Head: normocephalic EENT: PERRL/EOMI, normal ENT inspection Neck: supple Respiratory: normal breath sounds, no respiratory distress Cardiovascular: normal rate Gastrointestinal: normal inspection, non tender, soft, normal bowel sounds, non -distended, other - ileostomy Rectal: deferred Genitourinary: deferred Musculoskeletal: normal inspection, back normal Neurologic: normal inspection, alert, oriented x3, responsive Psychiatric: normal inspection, judgement/insight normal, memory normal Skin: normal inspection, normal color, no rash, warm/dry, palpation normal, well hydrated Lymphatic: normal inspection, no adenopathy Current Medications Current Medications Medications (Trade) Dose Ordered Sig/Tamia Route PRN Reason Start Time Stop Time Status Last Admin Dose Admin Acetaminophen (Tylenol) 650 mg Q4H PRN ORAL fever 03/14/18 19:46 04/13/18 19:45 Dextrose (Dextrose 50%) 25 ml STAT PRN IV Hypoglycemia 03/14/18 19:50 04/13/18 19:49 Dextrose (Dextrose 50%) 50 ml STAT PRN IV Hypoglycemia 03/14/18 19:51 04/13/18 19:50 Dextrose/Sodium Chloride 1,000 ml @ 75 mls/hr [id number] IV 03/14/18 20:30 04/13/18 20:29 03/14/18 21:40 Diphenhydramine HCl (Benadryl) 25 mg Q6H PRN ORAL Itching/Pruritis 03/14/18 19:47 04/13/18 19:46 Diphenhydramine HCl (Benadryl) 50 mg Q4H PRN IVP Itching 03/14/18 21:41 04/13/18 21:40 03/15/18 09:27 Heparin Sodium (Porcine) (Heparin 5000 units/ml) 5,000 units EVERY 12 HOURS SUBQ 03/14/18 21:00 04/13/18 20:59 Lorazepam (Ativan 2mg/ml 1ml) 1 mg Q4H PRN IV agitation 03/14/18 19:47 03/21/18 19:46 Morphine Sulfate (Morphine Sulfate) 4 mg Q4H PRN IVP Severe Pain (Pain Scale 7-10) 03/14/18 21:42 03/21/18 21:41 03/15/18 09:19 Nitroglycerin (Ntg) 0.4 mg Q5M X 3 DOSES PRN SL Prn Chest Pain 03/14/18 19:47 04/13/18 19:46 Ondansetron HCl (Zofran) 4 mg Q6H PRN IVP Nausea & Vomiting 03/14/18 19:47 04/13/18 19:46 Polyethylene Glycol (Miralax) 17 gm HSPRN PRN ORAL Constipation 03/14/18 21:00 04/13/18 20:59 Promethazine HCl 12.5 mg/Sodium Chloride 55.5 ml @ 110 mls/hr Q6H PRN IV Refractory N/V 03/14/18 19:49 04/13/18 19:48 Temazepam (Restoril) 15 mg HSPRN PRN ORAL Insomnia 03/14/18 21:00 03/21/18 20:59 03/14/18 21:55 GI: Plan Problems: (1) Spinal cord injury (2) Anemia (3) Paraplegia (4) Abdominal pain Plan CT AP reviewed >> - New finding of right lower quadrant ileostomy. No evidence of small bowel distention. - Retained dense stool within the colon, despite the ileostomy. Equivocal mild wall thickening of the distal colon, could indicate stercoral colitis regular diet ileostomy care iron deficiency >> venofer pain mgmt zofran electrolyte correction monitor H&H, transfuse prn f/u labs Discussed with Dr. Rodriguez. Thank you for this patient referral, we will follow. The patient was seen and examined at bedside and all new and available data was reviewed in the patients chart. I agree with the above findings, impression and plan. (Patient seen earlier today. Signature stamp does not reflect patient encounter time.). - MD Lidia ChildressAurora East HospitalGuero INSPECTOR [employer] DIE Mar 15, 2018 11:51
--- NOTE | 2018-03-15 11:58 | Consultation ---
History of Present Illness General Date patient seen: Mar 15, 2018 Chief Complaint: Abdominal Pain Reason for Consultation: abdominal pain Present Illness HPI 32 year old male presents with worsening abdominal pain, nausea, emesis, and worsening left hip wound. As per patient, he was incarcerated a few years back and sustained a fall which left him paraplegic. He has been wheelchair bound since and has had multiple medical problems. States that he has long history of abdominal discomfort which lead to a exploration and ileostomy. he is unsure of the details but states pain improved somewhat after ileostomy but intermittently still gets abdominal pain associated with nausea and emesis. pain described as cramping generalized pain. ostomy functional and has not has ostomy problems prior. he also states that he has had a chronic left buttock/ hip ulcer that has been managed for some time now. he has had wound care including dressings and wound VAC prior without significant improvement. he does attempt to stay off wound when he can but given wheelchair bound it is hard for him to keep off wound. surgery called to evaluate for abdominal pain and assist with wound management. patient seen, chart reviewed, patient examined. Allergies: Coded Allergies: MORPHINE (Unverified Allergy, Mild, Rash, 09/06/13) COPIED FROM NURSING KETOROLAC (Verified Allergy, Unknown, 03/14/18) Medication History Scheduled Multivitamin (Multivitamins), 1 CAP ORAL DAILY, (Reported) Scheduled PRN Hydromorphone Hcl (Hydromorphone Hcl), 2 MG PO Q3HR PRN for Severe Pain (Pain Scale 7-10), (Reported) Patient History History Provided By: Patient, Medical Record, PMD Healthcare decision maker N Resuscitation status Full Code Advanced Directive on File Past Medical/Surgical History Past Medical/Surgical History: (1) Spinal cord injury (2) Neurogenic bladder (3) Suprapubic catheter (4) Decubital ulcer (5) Osteomyelitis, chronic, ankle or foot (6) Decubitus ulcer of left heel, stage 3 (7) Sepsis (8) Abdominal pain (9) Constipation (10) Acute hypokalemia (11) Paraplegia (12) Anemia (13) Diarrhea (14) Diarrhea (15) Gastroenteritis (16) Hyponatremia (17) Ileus (18) Chronic pain syndrome (19) UTI (urinary tract infection) (20) UTI (urinary tract infection) (21) UTI (urinary tract infection) (22) Renal calculus or stone (23) Bronchitis (24) Vomiting (25) C. 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 (33) acinetobacter left heel wound infection (34) mrsa left heel wound infection (35) chronic osteomyelitis left heel Review of Systems All Other Systems: negative except mentioned in HPI Physical Exam General Appearance: no apparent distress, alert HEENT: normocephalic Neck: normal inspection Respiratory/Chest: lungs clear, normal breath sounds, no respiratory distress, no accessory muscle use Cardiovascular/Chest: normal rate Abdomen: normal bowel sounds, non tender, soft, no organomegaly, no mass, other - right side ileostomy viable and functional Extremities: other - bilateral lower extremity wasting Skin Exam: other Neurologic: alert, oriented x 3 Last 24 Hour Vital Signs Date Time Temp Pulse Resp B/P (MAP) Pulse Ox O2 Delivery O2 Flow Rate FiO2 03/15/18 09:49 97.9 03/15/18 09:19 97.9 03/15/18 08:00 97.9 81 20 96/60 100 Room Air 97.9 03/15/18 04:00 97.0 99 20 100/49 97 Room Air 97.0 03/15/18 00:00 97.3 95 20 100/52 100 Room Air 97.3 03/14/18 20:00 98.4 96 20 100/60 96 Room Air 98.4 03/14/18 18:00 98.5 89 18 107/60 100 Room Air 98.0 03/14/18 18:00 98.8 83 18 102/57 99 Room Air 98.8 03/14/18 16:00 98.0 03/14/18 16:00 98.0 82 17 103/61 99 Room Air 98.0 03/14/18 15:30 98.0 03/14/18 13:53 98.1 18 104/56 98 Room Air 98.1 03/14/18 13:43 98.0 100 18 87/50 98 Room Air 98.1 Intake and Output 03/14/18 03/15/18 19:00 07:00 Intake Total 1110 ml 675 ml Output Total 700 ml 650 ml Balance 410 ml 25 ml Intake IV Total 1110 ml 675 ml Output Urine Total 700 ml 450 ml Stool Total 200 ml Laboratory Tests Test 03/14/18 15:25 03/14/18 15:45 03/15/18 10:00 03/15/18 10:30 White Blood Count 7.7 K/UL (4.8-10.8) 4.9 K/UL (4.8-10.8) Red Blood Count 2.76 M/UL (4.70-6.10) L 2.61 M/UL (4.70-6.10) L Hemoglobin 8.0 G/DL (14.2-18.0) L 7.6 G/DL (14.2-18.0) L Hematocrit 24.9 % (42.0-52.0) L 23.9 % (42.0-52.0) L Mean Corpuscular Volume 90 FL (80-99) 92 FL (80-99) Mean Corpuscular Hemoglobin 29.0 PG (27.0-31.0) 29.3 PG (27.0-31.0) Mean Corpuscular Hemoglobin Concent 32.1 G/DL (32.0-36.0) 32.0 G/DL (32.0-36.0) Red Cell Distribution Width 17.1 % (11.6-14.8) H 16.9 % (11.6-14.8) H Platelet Count 182 K/UL (150-450) 195 K/UL (150-450) Mean Platelet Volume 6.5 FL (6.5-10.1) 7.2 FL (6.5-10.1) Neutrophils (%) (Auto) 72.5 % (45.0-75.0) % (45.0-75.0) Lymphocytes (%) (Auto) 13.6 % (20.0-45.0) L % (20.0-45.0) Monocytes (%) (Auto) 10.1 % (1.0-10.0) H % (1.0-10.0) Eosinophils (%) (Auto) 3.3 % (0.0-3.0) H % (0.0-3.0) Basophils (%) (Auto) 0.6 % (0.0-2.0) % (0.0-2.0) Prothrombin Time 11.4 SEC (9.30-11.50) Prothromb Time International Ratio 1.1 (0.9-1.1) Activated Partial Thromboplast Time 33 SEC (23-33) 31 SEC (23-33) Sodium Level 137 MMOL/L (136-145) 141 MMOL/L (136-145) Potassium Level 3.4 MMOL/L (3.5-5.1) L 3.4 MMOL/L (3.5-5.1) L Chloride Level 104 MMOL/L (98-107) 108 MMOL/L (98-107) H Carbon Dioxide Level 22 MMOL/L (21-32) 26 MMOL/L (21-32) Anion Gap 11 mmol/L (5-15) 8 mmol/L (5-15) Blood Urea Nitrogen 5 mg/dL (7-18) L 3 mg/dL (7-18) L Creatinine 0.2 MG/DL (0.55-1.30) L 0.2 MG/DL (0.55-1.30) L Estimat Glomerular Filtration Rate > 60 mL/min (>60) > 60 mL/min (>60) Glucose Level 103 MG/DL (74-106) 98 MG/DL (74-106) Calcium Level 8.9 MG/DL (8.5-10.1) 8.4 MG/DL (8.5-10.1) L Total Bilirubin 0.8 MG/DL (0.2-1.0) 0.7 MG/DL (0.2-1.0) Aspartate Amino Transf (AST/SGOT) 13 U/L (15-37) L 11 U/L (15-37) L Alanine Aminotransferase (ALT/SGPT) 15 U/L (12-78) 14 U/L (12-78) Alkaline Phosphatase 81 U/L (46-116) 73 U/L (46-116) Total Protein 7.6 G/DL (6.4-8.2) 7.3 G/DL (6.4-8.2) Albumin 2.6 G/DL (3.4-5.0) L 2.4 G/DL (3.4-5.0) L Globulin 5.0 g/dL 4.9 g/dL Albumin/Globulin Ratio 0.5 (1.0-2.7) L 0.5 (1.0-2.7) L Lipase 61 U/L (73-393) L Urine Color Yellow Urine Appearance Cloudy Urine pH 6 (4.5-8.0) Urine Specific [place] 1.010 (1.005-1.035) Urine Protein 2+ (NEGATIVE) H Urine Glucose (UA) Negative (NEGATIVE) Urine Ketones Negative (NEGATIVE) Urine Occult Blood 4+ (NEGATIVE) H Urine Nitrite Positive (NEGATIVE) H Urine Bilirubin Negative (NEGATIVE) Urine Urobilinogen Normal MG/DL (0.0-1.0) Urine Leukocyte Esterase 3+ (NEGATIVE) H Urine RBC 5-10 /HPF (0 - 0) H Urine WBC Tntc /HPF (0 - 0) H Urine Squamous Epithelial Cells None /LPF (NONE/OCC) Urine Bacteria Moderate /HPF (NONE) H Differential Total Cells Counted 100 Neutrophils % (Manual) 67 % (45-75) Lymphocytes % (Manual) 20 % (20-45) Monocytes % (Manual) 10 % (1-10) Eosinophils % (Manual) 3 % (0-3) Basophils % (Manual) 0 % (0-2) Band Neutrophils 0 % (0-8) Platelet Estimate Adequate Platelet Morphology Normal Hypochromasia 3+ Anisocytosis 1+ Spherocytes 1+ Reticulocyte Count 3.8 % (0.0-2.0) H Iron Level 15 ug/dL (50-175) L Total Iron Binding Capacity 185 ug/dL (250-450) L Percent Iron Saturation 8 % (15-50) L Unsaturated Iron Binding 170 ug/dL (112-346) Ferritin 257 NG/ML (8-388) Lactate Dehydrogenase 164 U/L (81-234) Amylase Level 19 U/L (25-115) L Vitamin B12 Level 375 PG/ML (193-986) Methylmalonic Acid Pending Thyroid Stimulating Hormone (TSH) 0.585 uiU/mL (0.358-3.740) Stool Occult Blood Pending Microbiology Date/Time Source Procedure Growth Status 03/14/18 15:45 Urine,Clean Catch Urine Culture - Preliminary Gram Negative Bacillus 1 Resulted Height (Feet): 5 Height (Inches): 10.00 Weight (Pounds): 161 Medications Current Medications Medications (Trade) Dose Ordered Sig/Tamia Route PRN Reason Start Time Stop Time Status Last Admin Dose Admin Acetaminophen (Tylenol) 650 mg Q4H PRN ORAL fever 03/14/18 19:46 04/13/18 19:45 Dextrose (Dextrose 50%) 25 ml STAT PRN IV Hypoglycemia 03/14/18 19:50 04/13/18 19:49 Dextrose (Dextrose 50%) 50 ml STAT PRN IV Hypoglycemia 03/14/18 19:51 04/13/18 19:50 Dextrose/Sodium Chloride 1,000 ml @ 75 mls/hr [id number] IV 03/14/18 20:30 04/13/18 20:29 03/14/18 21:40 Diphenhydramine HCl (Benadryl) 25 mg Q6H PRN ORAL Itching/Pruritis 03/14/18 19:47 04/13/18 19:46 Diphenhydramine HCl (Benadryl) 50 mg Q4H PRN IVP Itching 03/14/18 21:41 04/13/18 21:40 03/15/18 09:27 Heparin Sodium (Porcine) (Heparin 5000 units/ml) 5,000 units EVERY 12 HOURS SUBQ 03/14/18 21:00 04/13/18 20:59 Lorazepam (Ativan 2mg/ml 1ml) 1 mg Q4H PRN IV agitation 03/14/18 19:47 03/21/18 19:46 Morphine Sulfate (Morphine Sulfate) 4 mg Q4H PRN IVP Severe Pain (Pain Scale 7-10) 03/14/18 21:42 03/21/18 21:41 03/15/18 09:19 Nitroglycerin (Ntg) 0.4 mg Q5M X 3 DOSES PRN SL Prn Chest Pain 03/14/18 19:47 04/13/18 19:46 Ondansetron HCl (Zofran) 4 mg Q6H PRN IVP Nausea & Vomiting 03/14/18 19:47 04/13/18 19:46 Polyethylene Glycol (Miralax) 17 gm HSPRN PRN ORAL Constipation 03/14/18 21:00 04/13/18 20:59 Promethazine HCl 12.5 mg/Sodium Chloride 55.5 ml @ 110 mls/hr Q6H PRN IV Refractory N/V 03/14/18 19:49 04/13/18 19:48 Temazepam (Restoril) 15 mg HSPRN PRN ORAL Insomnia 03/14/18 21:00 03/21/18 20:59 03/14/18 21:55 Assessment/Plan Problem List: (1) Abdominal pain Assessment & Plan: abdominal pain resolved. cramping intermittent. likely colic vs enteritis. ostomy viable and functional advance diet as tolerated bowel regimen will follow clinically ICD Codes: R10.9 - Abdominal pain SNOMED: 25630164 Qualifiers: Qualified Codes: R10.84 - Generalized abdominal pain (2) Sacral decubitus ulcer, stage III Assessment & Plan: please see wound care photos for details. moderate sized stage III left buttock/hip decubitus ulcer. likely from prolonged wheelchair use. chronic as he has been receiving treatment for it for some time now without significant improvement. mild foul order, serous drainage, no active infection, tracking inferior through mid portion of wound 3cm. -keep off wound when possible, turn q2h -air soft mattress -dry gauze packing and dressing followed by ABD 2-3 times per day. -will follow with recs. thank you for this consultation ICD Codes: L89.153 - Sacral decubitus ulcer, stage III SNOMED: 841000242 Status: stable EricEdna ramosya Mar 15, 2018 11:58
[2018-03-15 12:00] VITALS: BP 91/48
--- NOTE | 2018-03-15 13:51 | General Progress Note ---
Assessment/Plan Assessment/Plan (1) Spinal cord injury (2) Paraplegia (3) Neuropathic pain (4) Chronic pain syndrome (5) Sacral decubitus ulcer, stage III We will continue Morphine 4mg IV Q4H PRN severe pain. Pt was d/w Dr. Bates and he concurred. Subjective Date patient seen: Mar 15, 2018 Time patient seen: 01:30 - pm Allergies: Coded Allergies: MORPHINE (Unverified Allergy, Mild, Rash, 09/06/13) COPIED FROM NURSING KETOROLAC (Verified Allergy, Unknown, 03/14/18) Subjective Constitutional: Reports: weakness, Denies: chills, diaphoresis, fever, malaise , no symptoms, other HEENT: Denies: blurred vision, double vision, ear discharge, ear pain, eye pain , mouth pain, mouth swelling, no symptoms, nose congestion, nose pain, other, tearing, throat pain, throat swelling Cardiovascular: Denies: chest pain, edema, irregular heart rate, lightheadedness, no symptoms, other, palpitations, syncope Respiratory: Denies: SOB at rest, SOB with excertion, cough, no symptoms, orthopnea, other, shortness of breath, sputum, stridor, wheezing Gastrointestinal/Abdominal: Denies: black stools, blood in stool, constipated, difficulty swallowing, nausea, no symptoms, other, poor appetite, poor fluid intake, rectal bleeding, tarry stools, vomiting Genitourinary: Denies: burning, discharge, flank pain, frequency, hematuria, incontinence, no symptoms, other, pain, urgency Neurologic/Psychiatric: Reports: numbness, weakness, Denies: anxiety, depressed , emotional problems, headache, no symptoms, other, paresthesia, pre-existing deficit, seizure, tingling, tremors Endocrine: Denies: excessive sweating, flushing, increased hunger, increased thirst, increased urine, intolerance to cold, intolerance to heat, no symptoms, other, unexplained weight gain, unexplained weight loss Hematologic/Lymphatic: Denies: anemia, easy bleeding, easy bruising, no symptoms, other Subjective Patient is a known patient from prior admission. Now admitted under the care of Dr. Kate due to abdominal pain which has resolved. Now c/o body pain on Morphine which has been helping reduce his pain. We were consulted so patient as adequate pain control while here in the hospital. Objective Last 24 Hour Vital Signs Date Time Temp Pulse Resp B/P (MAP) Pulse Ox O2 Delivery O2 Flow Rate FiO2 03/15/18 12:00 97.7 82 20 91/48 100 Room Air 97.7 03/15/18 09:49 97.9 03/15/18 09:19 97.9 03/15/18 08:00 97.9 81 20 96/60 100 Room Air 97.9 03/15/18 04:00 97.0 99 20 100/49 97 Room Air 97.0 03/15/18 00:00 97.3 95 20 100/52 100 Room Air 97.3 03/14/18 20:00 98.4 96 20 100/60 96 Room Air 98.4 03/14/18 18:00 98.5 89 18 107/60 100 Room Air 98.0 03/14/18 18:00 98.8 83 18 102/57 99 Room Air 98.8 03/14/18 16:00 98.0 03/14/18 16:00 98.0 82 17 103/61 99 Room Air 98.0 03/14/18 15:30 98.0 03/14/18 13:53 98.1 18 104/56 98 Room Air 98.1 Intake and Output 03/14/18 03/15/18 19:00 07:00 Intake Total 1110 ml 675 ml Output Total 700 ml 650 ml Balance 410 ml 25 ml Intake IV Total 1110 ml 675 ml Output Urine Total 700 ml 450 ml Stool Total 200 ml Laboratory Tests 03/14/18 15:25: White Blood Count 7.7, Red Blood Count 2.76L, Hemoglobin 8.0L, Hematocrit 24.9L , Mean Corpuscular Volume 90, Mean Corpuscular Hemoglobin 29.0, Mean Corpuscular Hemoglobin Concent 32.1, Red Cell Distribution Width 17.1H, Platelet Count 182, Mean Platelet Volume 6.5, Neutrophils (%) (Auto) 72.5, Lymphocytes (%) (Auto) 13.6L, Monocytes (%) (Auto) 10.1H, Eosinophils (%) (Auto ) 3.3H, Basophils (%) (Auto) 0.6, Prothrombin Time 11.4, Prothromb Time International Ratio 1.1, Activated Partial Thromboplast Time 33, Sodium Level 137, Potassium Level 3.4L, Chloride Level 104, Carbon Dioxide Level 22, Anion Gap 11, Blood Urea Nitrogen 5L, Creatinine 0.2L, Estimat Glomerular Filtration Rate > 60, Glucose Level 103, Calcium Level 8.9, Total Bilirubin 0.8, Aspartate Amino Transf (AST/SGOT) 13L, Alanine Aminotransferase (ALT/SGPT) 15, Alkaline Phosphatase 81, Total Protein 7.6, Albumin 2.6L, Globulin 5.0, Albumin/Globulin Ratio 0.5L, Lipase 61L 03/14/18 15:45: Urine Color Yellow, Urine Appearance Cloudy, Urine pH 6, Urine Specific Sterling 1.010, Urine Protein 2+H, Urine Glucose (UA) Negative, Urine Ketones Negative, Urine Occult Blood 4+H, Urine Nitrite PositiveH, Urine Bilirubin Negative, Urine Urobilinogen Normal, Urine Leukocyte Esterase 3+H, Urine RBC 5-10H, Urine WBC TntcH, Urine Squamous Epithelial Cells None, Urine Bacteria ModerateH 03/15/18 10:00: White Blood Count 4.9, Red Blood Count 2.61L, Hemoglobin 7.6L, Hematocrit 23.9L , Mean Corpuscular Volume 92, Mean Corpuscular Hemoglobin 29.3, Mean Corpuscular Hemoglobin Concent 32.0, Red Cell Distribution Width 16.9H, Platelet Count 195, Mean Platelet Volume 7.2, Neutrophils (%) (Auto) , Lymphocytes (%) (Auto) , Monocytes (%) (Auto) , Eosinophils (%) (Auto) , Basophils (%) (Auto) , Activated Partial Thromboplast Time 31, Sodium Level 141 , Potassium Level 3.4L, Chloride Level 108H, Carbon Dioxide Level 26, Anion Gap 8, Blood Urea Nitrogen 3L, Creatinine 0.2L, Estimat Glomerular Filtration Rate > 60, Glucose Level 98, Calcium Level 8.4L, Total Bilirubin 0.7, Aspartate Amino Transf (AST/SGOT) 11L, Alanine Aminotransferase (ALT/SGPT) 14, Alkaline Phosphatase 73, Total Protein 7.3, Albumin 2.4L, Globulin 4.9, Albumin/Globulin Ratio 0.5L, Differential Total Cells Counted 100, Neutrophils % (Manual) 67, Lymphocytes % (Manual) 20, Monocytes % (Manual) 10, Eosinophils % (Manual) 3, Basophils % (Manual) 0, Band Neutrophils 0, Platelet Estimate Adequate, Platelet Morphology Normal, Hypochromasia 3+, Anisocytosis 1+, Spherocytes 1+, Reticulocyte Count 3.8H, Iron Level 15L, Total Iron Binding Capacity 185L, Percent Iron Saturation 8L, Unsaturated Iron Binding 170, Ferritin 257, Lactate Dehydrogenase 164, Amylase Level 19L, Vitamin B12 Level 375, Methylmalonic Acid [Pending], Thyroid Stimulating Hormone (TSH) 0.585 03/15/18 10:30: Stool Occult Blood [Pending] Height (Feet): 5 Height (Inches): 10.00 Weight (Pounds): 161 Objective General Appearance: no apparent distress, alert EENT: PERRL/EOMI, normal ENT inspection Neck: normal alignment, supple Cardiovascular: normal rate, regular rhythm Respiratory/Chest: lungs clear, normal breath sounds Abdomen: distended Extremities: inflammation, swelling Edema: mild edema Neurologic: alert, oriented x 3 Skin: sacral decubitus ulcer noted Duncan Lorenzo Mar 15, 2018 13:51
[2018-03-15] MEDS ORDERED: Heplock Flush 100 units/ml 3 ml syr INJ SCH ×2 (14:45→15:00)
--- NOTE | 2018-03-15 17:17 | Consultation ---
History of Present Illness General Date patient seen: Mar 15, 2018 Time patient seen: 12:45 Chief Complaint: Abdominal Pain Referring physician: KYMBERLY ELMORE Reason for Consultation: abdominal pain Present Illness HPI 32 yo male paraplegic. SP tube dependent. Has been leaking since yesterday. Originally placed a year ago? Allergies: Coded Allergies: MORPHINE (Unverified Allergy, Mild, Rash, 09/06/13) COPIED FROM NURSING KETOROLAC (Verified Allergy, Unknown, 03/14/18) Medication History Scheduled Multivitamin (Multivitamins), 1 CAP ORAL DAILY, (Reported) Scheduled PRN Hydromorphone Hcl (Hydromorphone Hcl), 2 MG PO Q3HR PRN for Severe Pain (Pain Scale 7-10), (Reported) Patient History History Provided By: Patient Healthcare decision maker N Resuscitation status Full Code Advanced Directive on File Past Medical/Surgical History Past Medical/Surgical History: (1) Neurogenic bladder (2) Spinal cord injury (3) Suprapubic catheter Review of Systems All Other Systems: negative except mentioned in HPI Physical Exam General Appearance: no apparent distress HEENT: atraumatic Neck: supple Cardiovascular/Chest: normal rate Abdomen: other - SP tube in place, colostomy in place Extremities: non-tender Skin Exam: warm/dry Neurologic: alert, oriented x 3 Last 24 Hour Vital Signs Date Time Temp Pulse Resp B/P (MAP) Pulse Ox O2 Delivery O2 Flow Rate FiO2 03/15/18 14:02 97.7 03/15/18 12:00 97.7 82 20 91/48 100 Room Air 97.7 03/15/18 09:49 97.9 03/15/18 09:19 97.9 03/15/18 08:00 97.9 81 20 96/60 100 Room Air 97.9 03/15/18 04:00 97.0 99 20 100/49 97 Room Air 97.0 03/15/18 00:00 97.3 95 20 100/52 100 Room Air 97.3 03/14/18 20:00 98.4 96 20 100/60 96 Room Air 98.4 03/14/18 18:00 98.5 89 18 107/60 100 Room Air 98.0 03/14/18 18:00 98.8 83 18 102/57 99 Room Air 98.8 Intake and Output 03/14/18 03/15/18 19:00 07:00 Intake Total 1110 ml 675 ml Output Total 700 ml 650 ml Balance 410 ml 25 ml Intake IV Total 1110 ml 675 ml Output Urine Total 700 ml 450 ml Stool Total 200 ml Laboratory Tests Test 03/15/18 10:00 03/15/18 10:30 White Blood Count 4.9 K/UL (4.8-10.8) Red Blood Count 2.61 M/UL (4.70-6.10) L Hemoglobin 7.6 G/DL (14.2-18.0) L Hematocrit 23.9 % (42.0-52.0) L Mean Corpuscular Volume 92 FL (80-99) Mean Corpuscular Hemoglobin 29.3 PG (27.0-31.0) Mean Corpuscular Hemoglobin Concent 32.0 G/DL (32.0-36.0) Red Cell Distribution Width 16.9 % (11.6-14.8) H Platelet Count 195 K/UL (150-450) Mean Platelet Volume 7.2 FL (6.5-10.1) Neutrophils (%) (Auto) % (45.0-75.0) Lymphocytes (%) (Auto) % (20.0-45.0) Monocytes (%) (Auto) % (1.0-10.0) Eosinophils (%) (Auto) % (0.0-3.0) Basophils (%) (Auto) % (0.0-2.0) Differential Total Cells Counted 100 Neutrophils % (Manual) 67 % (45-75) Lymphocytes % (Manual) 20 % (20-45) Monocytes % (Manual) 10 % (1-10) Eosinophils % (Manual) 3 % (0-3) Basophils % (Manual) 0 % (0-2) Band Neutrophils 0 % (0-8) Platelet Estimate Adequate Platelet Morphology Normal Hypochromasia 3+ Anisocytosis 1+ Spherocytes 1+ Reticulocyte Count 3.8 % (0.0-2.0) H Activated Partial Thromboplast Time 31 SEC (23-33) Sodium Level 141 MMOL/L (136-145) Potassium Level 3.4 MMOL/L (3.5-5.1) L Chloride Level 108 MMOL/L (98-107) H Carbon Dioxide Level 26 MMOL/L (21-32) Anion Gap 8 mmol/L (5-15) Blood Urea Nitrogen 3 mg/dL (7-18) L Creatinine 0.2 MG/DL (0.55-1.30) L Estimat Glomerular Filtration Rate > 60 mL/min (>60) Glucose Level 98 MG/DL (74-106) Calcium Level 8.4 MG/DL (8.5-10.1) L Iron Level 15 ug/dL (50-175) L Total Iron Binding Capacity 185 ug/dL (250-450) L Percent Iron Saturation 8 % (15-50) L Unsaturated Iron Binding 170 ug/dL (112-346) Ferritin 257 NG/ML (8-388) Total Bilirubin 0.7 MG/DL (0.2-1.0) Aspartate Amino Transf (AST/SGOT) 11 U/L (15-37) L Alanine Aminotransferase (ALT/SGPT) 14 U/L (12-78) Alkaline Phosphatase 73 U/L (46-116) Lactate Dehydrogenase 164 U/L (81-234) Total Protein 7.3 G/DL (6.4-8.2) Albumin 2.4 G/DL (3.4-5.0) L Globulin 4.9 g/dL Albumin/Globulin Ratio 0.5 (1.0-2.7) L Amylase Level 19 U/L (25-115) L Vitamin B12 Level 375 PG/ML (193-986) Methylmalonic Acid Pending Thyroid Stimulating Hormone (TSH) 0.585 uiU/mL (0.358-3.740) Stool Occult Blood Pending Height (Feet): 5 Height (Inches): 10.00 Weight (Pounds): 161 Objective Narrative Procedure: SP tube placed (18 new zealander). Bladder irrigated. Working fine with no leakage Assessment/Plan Status: stable Assessment/Plan 32 yo male SP tube dependent. SP tube changed, last done 6 weeks ago. Likely needed changing, which is why it was leaking. 1. f/u own urologist in 4-6 weeks SP tube change. Tanner Thomas M.D. Mar 15, 2018 17:17
--- NOTE | 2018-03-15 18:30 | Consultation ---
DATE OF CONSULTATION: 03/15/2018 HEMATOLOGY/ONCOLOGY CONSULTATION CONSULTING PHYSICIAN: Henry Hayden M.D. REQUESTING PHYSICIAN: Reanna Kate M.D. REASON FOR CONSULTATION: Evaluation of progressive anemia. IDENTIFICATION DATA: Dear Dr. Kate, The patient is a pleasant 32-year-old male with past medical history significant for ileostomy, complains of abdominal pain. He was incarcerated recently. He is a paraplegic. He has a history of ileostomy. I have tried to obtain further history though the patient is refusing to be examined and refusing to give any further history. Most of the history is obtained from the medical chart. The patient currently is covered in a blanket and does not want to uncover himself. He has been vomiting for several days and decrease in the vomiting noted. He feels his left hip might be getting infected as well. Denies any fever or chills. Symptoms are [id number], per review of the record noted to be anemic with hemoglobin of 8. PAST MEDICAL HISTORY: Neurologic history of paraplegia since 2006 due to fall. PAST SURGICAL HISTORY: Ileostomy. ALLERGIES: Ketorolac and morphine. SOCIAL HISTORY: No alcohol, tobacco, or illicit drug use. REVIEW OF SYSTEMS: CONSTITUTIONAL: No fever, chills, or night sweats. SKIN: No rashes, bumps, or itching. HEENT: No headache, hearing or vision changes. BREASTS: No lumps, pain, or discharge. PULMONARY: No cough, sputum, or shortness of breath. GASTROINTESTINAL: No nausea, vomiting, or diarrhea. GENITOURINARY: No dysuria, frequency, or urgency. MUSCULOSKELETAL: No joint swelling, muscle pain, or trauma. PHYSICAL EXAMINATION: VITAL SIGNS: Reviewed. GENERAL: No distress. LUNGS: Decreased breath sounds. CARDIOVASCULAR: Regular rate. No S3 or S4. ABDOMEN: Soft, nontender, and nondistended. EXTREMITIES: 1+ edema. LABORATORY DATA: WBC 7.7, hemoglobin 8, and platelet count 182,000. INR of 1.1. Chemistry reviewed. BUN of 5 and creatinine 0.2. IMAGING: Reviewed. CAT scan of the abdomen and pelvis shows subcentimeter right renal lesion likely benign, mild pelvic bilateral lymphadenopathy reactive, mild hydronephrosis, chronic changes in the pelvis, and decubitus ulceration. ASSESSMENT AND RECOMMENDATIONS: 1. Bilateral pelvic lymphadenopathy, potentially is chronic and most likely reactive. Malignant adenopathy cannot be completely excluded. Recommend potential re-imaging in several months. 2. Anemia due to underlying chronic disease. Consider to obtain the patient's ferritin as well as B12, folate, and TSH to see if there is any reversible processes. 3. Failure to thrive likely secondary to paraplegia. 4. Abdominal pain with history of colostomy. 5. Left hip pain. No dislocation or fracture. Significant osteoporosis noted. 6. May require orthopedic evaluation. 7. Decubitus ulceration noted as per primary team. In addition, RN is following. . I appreciate the consultation. Henry Hayden M.D. DR: MAY JOB#: [id number] CC:
[2018-03-15] MEDS ORDERED: Iron Sucrose 100 MG in NS 55 ML IVPB SCH (21:00)
--- NOTE | 2018-03-16 09:58 | Discharge Summary ---
Discharge Summary Discharge Summary _ DATE OF ADMISSION: 03/14/2018 DATE OF DISCHARGE: 03/15/2018 CONSULTANTS: Dr. Henry Beltre BRIEF HOSPITAL COURSE: Patient is a 32-year-old male, with history of paraplegia, ileostomy, suprapubic catheter, presented to ED complaining of abdominal pain. He stated he had been vomiting for the last couple of days and also had diffuse abdominal pain. He also feels left hip might be getting infected, he had a chronic ulcer. He denied any fever, chest pain, nor shortness of breath. On evaluation at ED, he was slightly hypotensive, blood pressure was 87/50. Blood work did not show any leukocytoses, hemoglobin was 8/hematocrit 24.9. Urinalysis showed too many to count WBC, 5-10 RBC, 3+ leukocyte esterase, 4+ occult blood, 2+ protein. Hip x-ray showed marked subluxation and destruction on the left hip joint, progressive since 2014. CT of the abdomen and pelvis showed right lower quadrant ileostomy, no evidence of small bowel distention. There was retained stool within the colon despite the ileostomy. There were decubitus changes to the left buttock. Gas was seen extending from a left sided decubitus ulcer into what remains of the left hip joint. There was increased widening and subluxation of the left hip joint and fluid and tissue within the hip joint as compared to previous exam. Findings raise concern for septic arthritis and underlying osteomyelitis. He was started on IV vancomycin and Zosyn. He was seen by Dr. Master Beltre. Patient has moderate sized stage III left buttock/hip decubitus ulcer, with tracking inferiorly through the midportion of the wound measuring 3 cm. Decubitus ulcer likely from prolonged wheelchair use. Wound was with mild foul odor, serous drainage, no active infection seen. He was given wound care. He was placed on Airsoft mattress with frequent turning and offloading. He had med seeking behavior, patient was withdrawn and had depressed affect. He was diagnosed with depressive disorder and pain medication dependence. He was seen by paint technician, he was given morphine 4 mg IV when necessary 18. He was given Remeron 7.5 mg daily at bedtime. He had chronic suprapubic catheter and was noted to be leaking. He was seen by urologist. A Congolese 18 suprapubic tube was placed. Bladder was irrigated. There was no further leaking noted. He was given regular diet and ileostomy care. He had a drop in hemoglobin. Anemia workup showed serum iron level of 15, TIBC 185, ferritin 257. He was ordered to have Venofer however full treatment was not carried out as he left AGAINST MEDICAL ADVICE. FINAL DIAGNOSES: Sepsis Spinal cord injury with paraplegia Neurogenic bladder with suprapubic catheter status post change Multiple decubiti pressure ulcer present on admission Depressive disorder Pain medication dependence Anemia due to underlying chronic disease Acute drop in hemoglobin Chronic pain syndrome Neuropathic pain Noncompliance as patient left AGAINST MEDICAL ADVICE DISPOSITION: Patient left AGAINST MEDICAL ADVICE. I have been assigned to dictate discharge summary on this account, and I was not involved in the patient's management. Whitney Gibbs NP Mar 16, 2018 09:58
== END 2018-03-15 15:30 | disposition left against medical advice (07) | DRG 871 ==
LOC: EMR 14:18 → 4E 15:08 → EDBEDREQ 17:15
PROC: 0T2BX0Z Change Drainage Device in Bladder, External Approach (ICD-10-PCS; principal; 2018-03-15)
DX: A41.9 Sepsis, unspecified organism (principal); L89.623 Pressure ulcer of left heel, stage 3; L89.223 Pressure ulcer of left hip, stage 3; L89.323 Pressure ulcer of left buttock, stage 3; G82.20 Paraplegia, unspecified; F19.20 Other psychoactive substance dependence, uncomplicated; Z76.5 Malingerer [conscious simulation]; Z53.21 Procedure and treatment not carried out due to patient leaving prior to being seen by health care provider; Z99.3 Dependence on wheelchair; N31.9 Neuromuscular dysfunction of bladder, unspecified; G89.4 Chronic pain syndrome; D63.8 Anemia in other chronic diseases classified elsewhere; F32.89 Other specified depressive episodes; Z93.2 Ileostomy status; T83.038A Leakage of other urinary catheter, initial encounter; R62.7 Adult failure to thrive; R59.0 Localized enlarged lymph nodes; R10.84 Generalized abdominal pain; G62.9 Polyneuropathy, unspecified
CPT/HCPCS: 36415; 73502; 74176; 80053; 81003; 82150; 82270; 82607; 82728; 83540; 83550; 83615; 83690; 83921; 84443; 85007; 85025; 85044; 85060; 85610; 85730; 87086; 87181; 99285; J2405